=== PATIENT | female | born 2000 | race American Indian/Alaskan Native ===

== ENCOUNTER 2020-09-05 12:33 | Emergency (ER) | payer MEDICAID ==
[2020-09-05] MEDS ORDERED: LORazepam 2 MG/ML VIAL IV ONE (13:00)
[2020-09-05] MEDS ORDERED: ONDANSETRON 4 MG/2 ML INJ IV ONE (13:21)
--- NOTE | 2020-09-05 13:28 | Emergency Department Report ---
ED N/V/D HPI - General Stated complaint: ABD PAIN Time Seen by Provider: 09/05/20 12:53 Source: patient - History of Present Illness Initial comments: 19-year-old female, history of cyclical vomiting syndrome, anxiety, multiple pe rsonality disorder, presents the ED with abdominal pain and vomiting. Patient states this has been going on all week long. Patient has been to multiple other hospitals this week as well. Recently found out that she was during her previous ER visit. Patient states she never had problems like told her she was advised, but believes she is less than 8 weeks . Patient states she always goes through this sort of abdominal pain and vomiting when she is . Mother states aggravates her cyclical vomiting syndrome. Patient reports she is G4, P1. She reports last year. She reports loss of a twin at around 4 months. Patient reports abdominal pain, generalized. Patient is somewhat histrionic. Patient reports marijuana use. MD complaint: nausea, vomiting, abdominal pain -: days(s) (3) Description of Vomiting: watery Associated Abdominal Pain: Yes Location: diffuse Severity: moderate Consistency: constant Improves with: none Worsens with: none Associated Symptoms: nausea/vomiting - Related Data Previous Rx's Medication Instructions Recorded Last Taken Type Promethazine [Phenergan] 25 mg OH Q6HR PRN #20 supp.rect 09/05/20 Unknown Rx labetaloL [Labetalol 100mg TAB] 100 mg PO BID #15 tablet 09/05/20 Unknown Rx Allergies Allergy/AdvReac Type Severity Reaction Status Date / Time No Known Allergies Allergy Unverified 09/05/20 13:05 ED Review of Systems ROS: Stated complaint: ABD PAIN Other details as noted in HPI Comment: All other systems reviewed and negative Gastrointestinal: abdominal pain, nausea, vomiting Genitourinary: other (Denies vaginal bleeding) ED Past Medical Hx - Medications Home Medications: Home Medications Medication Instructions Recorded Confirmed Last Taken Type Promethazine [Phenergan] 25 mg OH Q6HR PRN #20 supp.rect 09/05/20 Unknown Rx labetaloL [Labetalol 100mg TAB] 100 mg PO BID #15 tablet 09/05/20 Unknown Rx ED Physical Exam - General General appearance: alert, other (Screaming, yelling, rolling around on the stretcher) - Head Head exam: Present: atraumatic, normocephalic - Eye Eye exam: Present: normal appearance, EOMI - ENT ENT exam: Present: mucous membranes moist - Neck Neck exam: Present: normal inspection - Respiratory Respiratory exam: Present: normal lung sounds bilaterally. Absent: respiratory distress - Cardiovascular Cardiovascular Exam: Present: normal rhythm, tachycardia - GI/Abdominal GI/Abdominal exam: Present: soft. Absent: distended, tenderness - Extremities Exam Extremities exam: Present: normal inspection - Neurological Exam Neurological exam: Present: alert, oriented X3 - Psychiatric Psychiatric exam: Present: other (histrionic) - Skin Skin exam: Present: warm, dry, intact, normal color ED Course Vital Signs 09/05/20 09/05/20 09/05/20 12:35 15:22 16:15 Temperature 97.9 F Pulse Rate 124 H 100 H 88 Respiratory 24 22 Rate Blood Pressure 159/121 166/114 Blood Pressure 182/123 [Left] O2 Sat by Pulse 97 100 Oximetry ED Medical Decision Making - Lab Data Result diagrams: 09/05/20 13:38 09/05/20 13:38 - Radiology Data Radiology results: report reviewed, image reviewed - Medical Decision Making 19-year-old female presents to ED with abdominal pain and vomiting. Patient reports history of cyclical vomiting syndrome. States she just found out that she was , which she believes is aggravating her cyclical vomiting syndrome. Ultrasound was ordered, tech only able to do transabdominal because patient was not cooperative with transvaginal exam. No IUP seen on ultrasound, however hCG level is only 41 at this time. Potassium is 3.2. This was repleted. Patient tolerated p.o. Blood pressure also elevated, labetalol given. Patient is feeling much better following medication. Outpatient follow-up advised with [facility]. Return precautions given. Critical care attestation.: If time is entered above; I have spent that time in minutes in the direct care of this critically ill patient, excluding procedure time. ED Disposition Clinical Impression: Early stage of , Abdominal pain with vomiting, Hypokalemia Disposition: - TO HOME OR SELFCARE Is pt being admited?: No Condition: Stable Instructions: First Trimester of , [id number], Abdominal Pain, Adult, [id number], Nausea and Vomiting, Adult Prescriptions: labetaloL [Labetalol 100mg TAB] 100 mg PO BID #15 tablet Promethazine [Phenergan] 25 mg OH Q6HR PRN #20 supp.rect PRN Reason: Nausea And Vomiting Referrals: PRIMARY CARE, [Primary Care Provider] - 3-5 Days STACY IZAGUIRRE MD [Staff Physician] - 3-5 Days Time of Disposition: 15:48
[2020-09-05] MEDS ORDERED: SODIUM CHLORIDE 0.9% 1000 ML 1,000 ML IV ONE (13:30)
[2020-09-05] MEDS ORDERED: diphenhydrAMINE 50 MG/ML VIAL IV ONE (14:07)
[2020-09-05 14:20] LABS: Eosinophils % (Auto) 0.3 % (0.0-4.3); Hematocrit 35.9 % (30.3-42.9); Hemoglobin 11.9 gm/dl (10.1-14.3); Lymphocytes # (Auto) 1.8 K/mm3 (1.2-5.4); Lymphocytes % (Auto) 13.1 % (13.4-35.0); Mean Corpuscular HGB Conc 33 % (30-34); Mean Corpuscular Volume 88 fl (79-97); Monocytes # (Auto) 0.9 K/mm3 (0.0-0.8); Monocytes % (Auto) 6.6 % (0.0-7.3); Platelet Count 313 K/mm3 (140-440); Red Blood Count 4.08 M/mm3 (3.65-5.03); Red Cell Distribution Width 13.8 % (13.2-15.2)
[2020-09-05 14:31] LABS: Alanine Aminotransferase 10 units/L (7-56); Albumin 4.2 g/dL (3.9-5)
[2020-09-05 14:32] LABS: Bilirubin,Direct < 0.2 mg/dL (0-0.2)
[2020-09-05 14:47] LABS: Bacteria,Urine 1+ /HPF (Negative); Bilirubin,Urine NEG (Negative); Blood,Urine NEG (Negative); Calcium Oxalate Crystals,Urine FEW; Color,Urine Yellow (Yellow); Hyaline Casts,Urine 1 /LPF; Mucus,Urine 3+ /HPF; Protein,Urine <15 mg/dL mg/dL (Negative)
[2020-09-05 14:48] LABS: Blood Urea Nitrogen 7 mg/dL (7-17); Calcium 9.3 mg/dL (8.4-10.2); Hemolysis Index 8
[2020-09-05 14:51] LABS: BUN/Creatinine Ratio 10
[2020-09-05 14:51] LABS: Amphetamine Screen,Urine Negative; Benzodiazepines Screen,Urine Negative; Cocaine Screen,Urine Negative; Methadone Screen,Urine Negative; Opiate Screen,Urine Negative
[2020-09-05 15:03] LABS: Cannabinoid Screen,Urine Positive
[2020-09-05] MEDS ORDERED: POTASSIUM CHLORIDE ER 20 MEQ TAB PO ONE (15:05)
--- NOTE | 2020-09-05 15:40 | Ultrasound Report ---
Obstetrical ultrasound limited Indication: Pelvic pain FINDINGS: The uterus measures about 7.3 x 5.2 x 5.3 cm. Right ovary was not well identified secondary to overlying bowel gas/patient difficulties. The left ovary was grossly unremarkable. IMPRESSION: Limited exam. No definite intrauterine identified within the limits of the exam . Signer Name: Julián Ramon MD Signed: 09/05/2020 3:36 PM Workstation Name: [id number]
[2020-09-05 16:16] VITALS: BP 166/114
--- NOTE | 2020-09-05 17:03 | Event Note ---
On my reexamination of the patient at 5 PM she tells me that she has a history of high blood pressure and is supposed to take medications for hypertension but has not taken any medications in quite some time. Patient denies chest pain, shortness breath, or headache.
== END 2020-09-05 17:30 | disposition home or self-care (01) ==
LOC: ED 12:33
DX: O21.8 Other vomiting complicating pregnancy (principal); O99.341 Other mental disorders complicating pregnancy, first trimester; O26.891 Other specified pregnancy related conditions, first trimester; R10.9 Unspecified abdominal pain; E87.6 Hypokalemia; F41.9 Anxiety disorder, unspecified; Z3A.01 Less than 8 weeks gestation of pregnancy; Z79.899 Other long term (current) drug therapy
CPT/HCPCS: 36415; 76801; 80048; 80076; 80307; 81001; 83690; 84702; 85025; 96361; 96374; 96375; 99284; J1200; J2060; J2405; J7030